=== PATIENT | male | born 1960 | race African-American/Black ===

== ENCOUNTER 2016-03-27 13:35 | Inpatient (IN) | payer OTHER ==
[2016-03-27 16:18] VITALS: BMI 20.7
--- NOTE | 2016-03-27 16:35 | HP ---
CIWA Score - CIWA Score Nausea/Vomitin-Mild Nausea/No Vomiting Muscle Tremors: 4-Moderate,w/Arms Extend Anxiety: 4-Mod. Anxious/Guarded Agitation: 4-Moderately Restless Paroxysmal Sweats: 1-Minimal Palms Moist Orientation: 0-Oriented Tacttile Disturbances: 0-None Auditory Disturbances: 0-None Visual Disturbances: 1-Very Mild Sensitivity Headache: 3-Moderate CIWA-Ar Total Score: 18 Admission ROS BHS - HPI Chief Complaint: withdrawal sx Allergies/Adverse Reactions: Allergies Allergy/AdvReac Type Severity Reaction Status Date / Time No Known Allergies Allergy Verified 03/27/16 16:08 History of Present Illness: 55 years old male with long history of alcohol, nicotine dependence, denies medical issue has depression, longest sobriety 3 years is admitted to detox Exam Limitations: No Limitations - Ebola screening Have you traveled outside of the country in the last 21 days: No Have you had contact with anyone from an Ebola affected area: No Have you been sick,other than usual withdrawal symptoms: No Do you have a fever: No - Review of Systems Constitutional: Chills, Loss of Appetite, Changes in sleep, Unexplained wgt Loss EENT: reports: Other (needed eye glasses) Respiratory: reports: Cough Cardiac: reports: No Symptoms Reported GI: reports: Nausea, Poor Appetite, Poor Fluid Intake, Abdominal cramping : reports: No Symptoms Reported Musculoskeletal: reports: Back Pain (occupational) Integumentary: reports: No Symptoms Reported Neuro: reports: Tremors Endocrine: reports: No Symptoms Reported Hematology: reports: No Symptoms Reported Psychiatric: reports: Judgement Intact, Orientated x3, Depressed Other Systems: Reviewed and Negative Patient History - Patient Medical History Hx Anemia: Yes (occassionally; not on any meds) Hx Asthma: No Hx Chronic Obstructive Pulmonary Disease (COPD): No Hx Cancer: No Hx Cardiac Disorders: No Hx Congestive Heart Failure: No Hx Hypertension: No Hx Hypercholesterolemia: No Hx Pacemaker: No HX Cerebrovascular Accident: No Hx Seizures: No Hx Dementia: No Hx Diabetes: No Hx Gastrointestinal Disorders: No Hx Liver Disease: No Hx Genitourinary Disorders: No Hx Sexually Transmitted Disorders: No Hx Renal Disease (ESRD): No Hx Thyroid Disease: No Hx Human Immunodeficiency Virus (HIV): No Hx Hepatitis C: No Hx Depression: Yes Hx Suicide Attempt: No Hx Bipolar Disorder: No Hx Schizophrenia: No - Patient Surgical History Past Surgical History: Yes Hx Neurologic Surgery: No Hx Cataract Extraction: No Hx Cardiac Surgery: No Hx Lung Surgery: No Hx Breast Surgery: No Hx Breast Biopsy: No Hx Abdominal Surgery: No Hx Appendectomy: No Hx Cholecystectomy: No Hx Genitourinary Surgery: No Hx Orthopedic Surgery: No Other Surgical History: removal of bunions on both feet Anesthesia Reaction: No - PPD History Previous Implant?: Yes Documented Results: Negative w/proof Implanted On Prior R Admission?: Yes Date: 09/25/15 Results: 0 MM PPD to be Administered?: No - Smoking Cessation Smoking history: Current every day smoker Have you smoked in the past 12 months: Yes Aproximately how many cigarettes per day: 10 Cigars Per Day: 0 Hx Chewing Tobacco Use: No Initiated information on smoking cessation: Yes 'Breaking Loose' booklet given: 03/27/16 - Substance & Tx. History Hx Alcohol Use: Yes Hx Substance Use: Yes Substance Use Type: Alcohol, Cocaine, Marijuana Hx Substance Use Treatment: Yes - Substances Abused Alcohol Route: Oral Frequency: Daily Amount used: 1-2 PINTS VODKA Age of first use: 20 Date of Last Use: 03/26/16 Cocaine Route: Inhalation Frequency: Daily Amount used: $20 Age of first use: 20 Date of Last Use: 03/26/16 Marijuana/Hashish Route: Smoking Frequency: Daily Amount used: 1 JOINT Age of first use: 20 Date of Last Use: 03/26/16 PCP Route: Inhalation Frequency: 1-3 times last 30 days Amount used: 1 JOINT Age of first use: 20 Date of Last Use: 03/24/16 Family Disease History - Family Disease History Family Disease History: Diabetes: Mother (HTN), Heart Disease: Father (alcohol, , HTN), Mother, CA: Brother (alcohol, HTN), Respiratory: Sister, Other: Father, Brother Admission Physical Exam BHS - Vital Signs Vital Signs: Vital Signs - 24 hr 03/27/16 16:15 Temperature 98.0 F Pulse Rate 84 Respiratory 18 Rate Blood Pressure 121/75 - Physical General Appearance: Yes: Appropriately Dressed, Moderate Distress, Thin, Tremorous, Irritable, Sweating, Anxious HEENTM: Yes: Hearing grossly Normal, Normal ENT Inspection, Normocephalic, Normal Voice Respiratory: Yes: Chest Non-Tender, Lungs Clear, Normal Breath Sounds, No Respiratory Distress, No Accessory Muscle Use Neck: Yes: Supple, Trachea in good position Breast: Yes: Breasts Symetrical Cardiology: Yes: Regular Rhythm, Regular Rate, S1, S2 Abdominal: Yes: Non Tender, Soft Genitourinary: Yes: Within Normal Limits Back: Yes: Normal Inspection Musculoskeletal: Yes: full range of Motion, Gait Steady, Back pain Extremities: Yes: Normal Inspection, Normal Range of Motion, Non-Tender, Tremors Neurological: Yes: Fully Oriented, Alert, Motor Strength 5/5, Normal Response, Depressed Affect Integumentary: Yes: Warm, Moist Lymphatic: Yes: Within Normal Limits - Diagnostic (1) Marijuana dependence Current Visit: Yes Status: Chronic (2) Alcohol dependence with uncomplicated withdrawal Current Visit: Yes Status: Acute (3) Cocaine dependence Current Visit: Yes Status: Chronic Qualifiers: Substance use status: uncomplicated Qualified Code(s): F14.20 - Cocaine dependence, uncomplicated (4) Nicotine dependence Current Visit: Yes Status: Acute Qualifiers: Nicotine product type: cigarettes Substance use status: uncomplicated Qualified Code(s): F17.210 - Nicotine dependence, cigarettes, uncomplicated (5) Depression Current Visit: Yes Status: Suspected Qualifiers: Depression Type: dysthymia Qualified Code(s): F34.1 - Dysthymic disorder (6) Anemia Current Visit: Yes Status: Chronic Qualifiers: Anemia type: iron deficiency Comment: lab pending (7) Weight loss Current Visit: Yes Status: Acute Comment: ensure Cleared for Admission [facility] - Detox or Rehab [facility] Level of Care: Medically Managed Detox Regimen/Protocol: Librium [facility] Breath Alcohol Content Breath Alcohol Content: 0 Urine Drug Screen - Results Drug Screen Negative: No Urine Drug Screen Results: THC-Marijuana, CARLOS-Cocaine, PCP-Phencyclidine, BZO- Benzodiazepines, TCA-Tricyclic Antidepress
[2016-03-27] MEDS ORDERED: chlordiazePOXIDE HCL 25 MG CAPSULE PO PRN (16:37)
[2016-03-27] MEDS ORDERED: guaiFENesin/D-METHORPHAN HB 10 ML UNIT-DOSE CUPS PO PRN (16:37)
[2016-03-27] MEDS ORDERED: MENTHOL/PHENOL 1 EACH UD MM PRN (16:37)
[2016-03-27] MEDS ORDERED: LOPERAMIDE HCL 2 MG CAPSULE PO PRN (16:37)
[2016-03-27] MEDS ORDERED: NICOTINE POLACRILEX 2 MG GUM BC PRN (16:37)
[2016-03-27] MEDS ORDERED: MAGNESIUM HYDROX 2400MG/30ML ORAL SUSPENSION 30 ML CUP PO PRN (16:37)
[2016-03-27] MEDS ORDERED: MAG HYDROX/AL HYDROX/SIMETH 30 ML UNIT-DOSE CUP PO PRN (16:37)
[2016-03-27] MEDS ORDERED: P-EPHED 60MG/TRIPROLIDI 2.5MG TABLET PO PRN (16:37)
[2016-03-27] MEDS ORDERED: IBUPROFEN 400 MG TABLET (FP) PO PRN (16:37)
[2016-03-27] MEDS ORDERED: hydrOXYzine PAMOATE 50 MG CAPSULE (FP) PO PRN (16:37)
[2016-03-27] MEDS ORDERED: ACETAMINOPHEN 325 MG TABLET (FP) PO PRN (16:37)
[2016-03-27] MEDS ORDERED: MAGNESIUM CITRATE 300 ML BOTTLE PO PRN (16:37)
[2016-03-27] MEDS ORDERED: chlordiazePOXIDE HCL 25 MG CAPSULE PO ONE (18:15)
[2016-03-27] MEDS: THIAMINE HCL 100 MG TABLET (FP) PO SCH (22:18)
[2016-03-27] MEDS: chlordiazePOXIDE HCL 25 MG CAPSULE PO SCH (22:18)
[2016-03-27] MEDS: diphenhydrAMINE HCL 50 MG CAPSULE PO PRN (22:18)
[2016-03-27 23:13] LABS: URINE APPEARANCE CLEAR; URINE BILIRUBIN NEGATIVE (NEGATIVE); URINE BLOOD NEGATIVE (NEGATIVE); URINE COLOR YELLOW; URINE GLUCOSE (UA) NEGATIVE (NEGATIVE); URINE KETONE NEGATIVE (NEGATIVE); URINE LEUK ESTERASE NEGATIVE (NEGATIVE); URINE NITRITE NEGATIVE (NEGATIVE); URINE PROTEIN NEGATIVE (NEGATIVE); URINE UROBILINOGEN 4.0 E.U/dl E.U./dl (0.2-1.0)
[2016-03-28] MEDS: chlordiazePOXIDE HCL 25 MG CAPSULE PO SCH ×4 (05:36→22:16)
--- NOTE | 2016-03-28 08:18 | CONSULT ---
[facility] Psychiatric Consult - Data Date of interview: 03/28/16 Admission source: [facility] Identifying data: This is 55 years old male with no psychiatric hospitalization history intoxicated with: Alcohol Cannabis, Cocaine, PCP nad Nicotine Substance Abuse History: - Smoking Cessation. Smoking history: Current every day smoker. Have you smoked in the past 12 months: Yes. Aproximately how many cigarettes per day: 10. Cigars Per Day: 0. Hx Chewing Tobacco Use: No. Initiated information on smoking cessation: Yes. 'Breaking Loose' booklet given : 03/27/16. - Substance & Tx. History. Hx Alcohol Use: Yes. Hx Substance Use : Yes. Substance Use Type: Alcohol, Cocaine, Marijuana. Hx Substance Use Treatment: Yes. - Substances Abused. Alcohol. Route: Oral. Frequency: Daily. Amount used: 1-2 PINTS VODKA. Age of first use: 20. Date of Last Use: 03/26/16. Cocaine. Route: Inhalation. Frequency: Daily. Amount used: $ 20. Age of first use: 20. Date of Last Use: 03/26/16. Marijuana/Hashish. Route: Smoking. Frequency: Daily. Amount used: 1 JOINT. Age of first use: 20. Date of Last Use: 03/26/16. PCP. Route: Inhalation. Frequency: 1-3 times last 30 days. Amount used: 1 JOINT. Age of first use: 20. Date of Last Use: 03/24/16 Medical History: Anemia history, Weight loss history,History of Blackouts Psychiatric History: Patient reports history of depression, reports no meedications taking prior to admission Physical/Sexual Abuse/Trauma History: Denies Additional Comment: Observation. Detox Unit Care protocol Mental Status Exam - Mental Status Exam Alert and Oriented to: Person Cognitive Function: Fair Patient Appearance: Unkempt Mood: Sad Affect: Flat Patient Behavior: Sedated Speech Pattern: Delayed Voice Loudness: Mildly Soft/Quiet Thought Process: Circumstantial Thought Disorder: Being Controlled Hallucinations: Denies Suicidal Ideation: Denies Homicidal Ideation: Denies Insight/Judgement: Fair Sleep: Difficulty falling asleep Appetite: Fair Muscle strength/Tone: Mild Hypotonicity Gait/Station: Shuffling Additional Comments: Observation. Detox Unit Care protocol Psychiatric Findings - Problem List ([place] 1, 2,3) (1) Alcohol dependence with uncomplicated withdrawal Current Visit: Yes Status: Acute (2) Nicotine dependence Current Visit: Yes Status: Acute Qualifiers: Nicotine product type: cigarettes Substance use status: uncomplicated Qualified Code(s): F17.210 - Nicotine dependence, cigarettes, uncomplicated (3) Cocaine dependence Current Visit: Yes Status: Chronic Qualifiers: Substance use status: uncomplicated Qualified Code(s): F14.20 - Cocaine dependence, uncomplicated (4) Marijuana dependence Current Visit: Yes Status: Chronic (5) Depression Current Visit: Yes Status: Suspected Qualifiers: Depression Type: dysthymia Qualified Code(s): F34.1 - Dysthymic disorder (6) Drug-induced mood disorder Current Visit: No Status: Acute (7) Substance induced mood disorder Current Visit: No Status: Acute (8) PCP abuse Current Visit: No Status: Chronic - Initial Treatment Plan Initial Treatment Plan: Observation. Detox Unit Care protocol
[2016-03-28 10:13] LABS: ALBUMIN 3.6 g/dl (3.4-5.0); ANION GAP 6 (8-16); CALCIUM 8.4 mg/dL (8.5-10.1); CO2 27 mmol/L (21-32); GLUCOSE,RANDOM 117 mg/dL (74-106)
[2016-03-28 10:19] LABS: ALK PHOS 76 U/L (45-117); BILIRUBIN,TOTAL 0.4 mg/dL (0.2-1.0); CREATININE 0.9 mg/dL (0.7-1.3); SGOT/AST 30 U/L (15-37); SGPT/ALT 42 U/L (12-78); TOT PROT 6.6 g/dl (6.4-8.2)
[2016-03-28 10:27] LABS: MCH 32.6 pg (25.7-33.7); MCHC 34.1 g/dl (32.0-35.9); MEAN CELL VOLUME 95.4 fl (80-96); MEAN PLT VOLUME 8.2 fl (7.5-11.1); PLATELET COUNT 247 K/MM3 (134-434); RDW 14.7 % (11.9-15.9); WHITE BLOOD COUNT 3.3 K/mm3 (4.0-10.0)
[2016-03-28] MEDS: PRENATAL VITAMINS W/ FOLIC ACID TABLET (FP) PO SCH (10:40)
[2016-03-28] MEDS: NICOTINE 14 MG/24 HOURS TOPICAL PATCH TD SCH (10:40)
--- NOTE | 2016-03-28 11:13 | PN ---
S CIWA - CIWA Score Nausea/Vomitin-No Nausea/No Vomiting Muscle Tremors: 3 Anxiety: 3 Agitation: 3 Paroxysmal Sweats: 3 Orientation: 0-Oriented Tacttile Disturbances: 0-None Auditory Disturbances: 0-None Visual Disturbances: 0-None Headache: 1-Very Mild CIWA-Ar Total Score: 13 BHS Progress Note (SOAP) Subjective: irritable sweats interrupted sleep agitation anxiety Objective: 03/28/16 11:12 Vital Signs Temperature 97.7 F 03/28/16 10:04 Pulse Rate 71 03/28/16 10:04 Respiratory Rate 16 03/28/16 10:04 Blood Pressure 124/87 03/28/16 10:04 O2 Sat by Pulse Oximetry (%) Laboratory Tests 03/27/16 03/28/16 03/28/16 23:00 05:45 05:45 WBC 3.3 L D RBC 3.95 L Hgb 12.9 Hct 37.6 MCV 95.4 MCHC 34.1 RDW 14.7 Plt Count 247 D MPV 8.2 Sodium 146 H Potassium 4.6 D Chloride 113 H Carbon Dioxide 27 Anion Gap 6 L BUN 10 Creatinine 0.9 Creat Clearance w eGFR > 60 Random Glucose 117 H Calcium 8.4 L Total Bilirubin 0.4 D AST 30 ALT 42 D Alkaline Phosphatase 76 D Total Protein 6.6 Albumin 3.6 Urine Color Yellow Urine Appearance Clear Urine pH 7.0 Ur Specific [place] 1.026 Urine Protein Negative Urine Glucose (UA) Negative Urine Ketones Negative Urine Blood Negative Urine Nitrite Negative Urine Bilirubin Negative Urine Urobilinogen 4.0 e.u/dl Ur Leukocyte Esterase Negative awake/alert ambulating no acute distress Assessment: 03/28/16 11:12 withdrawal sx Plan: continue detox increase fluids
--- NOTE | 2016-03-28 17:06 | EKG ---
Test Reason : Blood Pressure : / mmHG Vent. Rate : 081 BPM Atrial Rate : 081 BPM P-R Int : 138 ms QRS Dur : 086 ms QT Int : 366 ms P-R-T Axes : 089 089 070 degrees QTc Int : 425 ms NORMAL SINUS RHYTHM POSSIBLE LEFT ATRIAL ENLARGEMENT SEPTAL INFARCT , AGE UNDETERMINED ABNORMAL ECG NO PREVIOUS ECGS AVAILABLE Confirmed by CANDIDA RUANO MD ([id number]) on 03/28/2016 5:06:21 PM Referred By: Confirmed By:CANDIDA RUANO MD
[2016-03-28] MEDS: THIAMINE HCL 100 MG TABLET (FP) PO SCH (22:15)
[2016-03-28] MEDS: diphenhydrAMINE HCL 50 MG CAPSULE PO PRN (22:16)
[2016-03-29] MEDS: chlordiazePOXIDE HCL 25 MG CAPSULE PO SCH ×3 (05:36→17:25)
[2016-03-29] MEDS: NICOTINE 14 MG/24 HOURS TOPICAL PATCH TD SCH (10:48)
[2016-03-29] MEDS: PRENATAL VITAMINS W/ FOLIC ACID TABLET (FP) PO SCH (10:48)
--- NOTE | 2016-03-29 11:06 | PN ---
[facility] CIWA - CIWA Score Nausea/Vomitin-No Nausea/No Vomiting Muscle Tremors: 3 Anxiety: 3 Agitation: 3 Paroxysmal Sweats: 2 Orientation: 0-Oriented Tacttile Disturbances: 0-None Auditory Disturbances: 0-None Visual Disturbances: 0-None Headache: 0-None Present CIWA-Ar Total Score: 11 BHS Progress Note (SOAP) Subjective: irritable agitation sweats Objective: 03/29/16 11:05 Vital Signs Temperature 97.9 F 03/29/16 10:00 Pulse Rate 71 03/29/16 10:00 Respiratory Rate 18 03/29/16 10:00 Blood Pressure 132/97 03/29/16 10:00 O2 Sat by Pulse Oximetry (%) Laboratory Tests 03/27/16 03/27/16 03/28/16 05:45 23:00 05:45 WBC 3.3 L D RBC 3.95 L Hgb 12.9 Hct 37.6 MCV 95.4 MCHC 34.1 RDW 14.7 Plt Count 247 D MPV 8.2 Sodium Potassium Chloride Carbon Dioxide Anion Gap BUN Creatinine Creat Clearance w eGFR Random Glucose Calcium Total Bilirubin AST ALT Alkaline Phosphatase Total Protein Albumin Urine Color Yellow Urine Appearance Clear Urine pH 7.0 Ur Specific [place] 1.026 Urine Protein Negative Urine Glucose (UA) Negative Urine Ketones Negative Urine Blood Negative Urine Nitrite Negative Urine Bilirubin Negative Urine Urobilinogen 4.0 e.u/dl Ur Leukocyte Esterase Negative RPR Titer Hepatitis C Antibody <0.1 03/28/16 03/28/16 05:45 05:45 WBC RBC Hgb Hct MCV MCHC RDW Plt Count MPV Sodium 146 H Potassium 4.6 D Chloride 113 H Carbon Dioxide 27 Anion Gap 6 L BUN 10 Creatinine 0.9 Creat Clearance w eGFR > 60 Random Glucose 117 H Calcium 8.4 L Total Bilirubin 0.4 D AST 30 ALT 42 D Alkaline Phosphatase 76 D Total Protein 6.6 Albumin 3.6 Urine Color Urine Appearance Urine pH Ur Specific [place] Urine Protein Urine Glucose (UA) Urine Ketones Urine Blood Urine Nitrite Urine Bilirubin Urine Urobilinogen Ur Leukocyte Esterase RPR Titer Nonreactive Hepatitis C Antibody awake/alert ambulating no acute distress Assessment: 03/29/16 11:06 withdrawal sx Plan: continue detox increase fluids
[2016-03-29] MEDS: THIAMINE HCL 100 MG TABLET (FP) PO SCH (22:31)
[2016-03-29] MEDS: chlordiazePOXIDE 5 MG CAPSULE PO SCH (22:31)
[2016-03-30] MEDS: chlordiazePOXIDE 5 MG CAPSULE PO SCH ×2 (05:46→11:00)
[2016-03-30 10:01] VITALS: BP 125/86; PULSE 74; TEMP 97.2
[2016-03-30] MEDS: PRENATAL VITAMINS W/ FOLIC ACID TABLET (FP) PO SCH (11:00)
[2016-03-30] MEDS: NICOTINE 14 MG/24 HOURS TOPICAL PATCH TD SCH (11:02)
--- NOTE | 2016-03-30 12:11 | PN ---
S Progress Note Note: patient does not want to complete detox, risks and benefits of signing out AMA discussed, nursing notified. patient is signing out AMA.
--- NOTE | 2016-03-30 12:13 | DS ---
[facility] Detox Discharge Summary Admission Date: 03/27/16 Discharge Date: 03/30/16 - History Present History: Alcohol Dependence, Cannabis Dependence, Cocaine Dependence Pertinent Past History: nicotine dependence, anxiety, depression , insomnia, anemia - Physical Exam Results Vital Signs: Vital Signs Temperature 97.2 F L 03/30/16 10:01 Pulse Rate 74 03/30/16 10:01 Respiratory Rate 20 03/30/16 10:01 Blood Pressure 125/86 03/30/16 10:01 O2 Sat by Pulse Oximetry (%) Pertinent Admission Physical Exam Findings: withdrawal sx - Treatment Hospital Course: Detox Protocol Followed Patient has Accepted a Rehab Referral to: Yes - Medication Discharge Medications: Ambulatory Orders NK [No Known Home Medication] 03/27/16 - Diagnosis (1) Alcohol dependence with uncomplicated withdrawal Current Visit: Yes Status: Acute (2) Nicotine dependence Current Visit: Yes Status: Acute Qualifiers: Nicotine product type: cigarettes Substance use status: uncomplicated Qualified Code(s): F17.210 - Nicotine dependence, cigarettes, uncomplicated (3) Weight loss Current Visit: Yes Status: Acute (4) Anemia Current Visit: Yes Status: Chronic Qualifiers: Anemia type: iron deficiency (5) Cocaine dependence Current Visit: Yes Status: Chronic Qualifiers: Substance use status: uncomplicated Qualified Code(s): F14.20 - Cocaine dependence, uncomplicated (6) Marijuana dependence Current Visit: Yes Status: Chronic (7) Depression Current Visit: Yes Status: Suspected Qualifiers: Depression Type: dysthymia Qualified Code(s): F34.1 - Dysthymic disorder (8) Drug-induced mood disorder Current Visit: No Status: Acute (9) Substance induced mood disorder Current Visit: No Status: Acute (10) Blackout spell Current Visit: No Status: Resolved (11) PCP abuse Current Visit: No Status: Acute - AMA Did Patient Leave Against Medical Advice: Yes
[2016-03-30] MEDS ORDERED: chlordiazePOXIDE HCL 10 MG CAPSULE PO SCH (23:00)
== END 2016-03-30 12:35 | disposition left against medical advice (07) | DRG 770 ==
LOC: YASAS 13:35 → Y6N 18:04
PROVIDERS: ADMIT Internal Medicine Addiction Medicine; ATTEND Internal Medicine Addiction Medicine
PROC: HZ2ZZZZ Detoxification Services for Substance Abuse Treatment (ICD-10-PCS; principal; 2016-03-27)
DX: F10.230 Alcohol dependence with withdrawal, uncomplicated (principal); F14.20 Cocaine dependence, uncomplicated; F12.20 Cannabis dependence, uncomplicated; F16.10 Hallucinogen abuse, uncomplicated; F17.210 Nicotine dependence, cigarettes, uncomplicated; F34.1 Dysthymic disorder; F19.24 Other psychoactive substance dependence with psychoactive substance-induced mood disorder; D50.9 Iron deficiency anemia, unspecified; Z87.898 Personal history of other specified conditions; Z86.69 Personal history of other diseases of the nervous system and sense organs; Z59.0 Homelessness
CPT/HCPCS: 36415; 80053; 81003; 85027; 86593; 86803; 93005; 93010